=== PATIENT | female | born 2000 ===

== ENCOUNTER 2021-03-29 20:04 | Emergency (ER) ==
[~2021-03-29] VITALS: Ht 170.2 cm; Wt 128.5 kg
[2021-03-29 21:08] LABS: RSV AMPLIFICATION NEGATIVE (NEGATIVE)
== END 2021-03-30 01:28 | disposition left against medical advice (07) ==
LOC: M ED 20:04
DX: Z53.21 Procedure and treatment not carried out due to patient leaving prior to being seen by health care provider (principal)